=== PATIENT | female | born 1965 | race Caucasian/White ===

== ENCOUNTER 2021-02-04 07:45 | Outpatient (CLI) | payer BC ==
[2021-02-04] MEDS ORDERED: Regadenoson 0.4 MG/5 ML SYRINGE ONE (12:39)
== END 2021-02-04 07:46 | disposition home or self-care (01) ==
LOC: NM 07:45
PROVIDERS: ATTEND Physician Assistant
DX: I48.0 Paroxysmal atrial fibrillation (principal)
CPT/HCPCS: 78452; 93017; A9500; J2785

== ENCOUNTER 2021-03-30 09:06 | Outpatient (CLI) | payer BC ==
[2021-03-30 11:00] LABS: #Basophils 0.1 10x3/uL (0.0-0.2); #Eosinphils 0.3 10x3/uL (0.0-0.5); #Monocytes 0.7 10x3/uL (0.0-1.1); #Neutrophils 5.4 10x3/uL (1.5-8.4); %Basophils 1.2 % (0.0-2.0); %Eosinophils 2.7 % (0.0-6.0); %Monocytes 7.4 % (0.0-10.0); %Neutrophils 58.4 % (40.0-75.0); Hemoglobin 13.5 g/dL (12.0-15.5); Mean Corpuscular HGB CONC 32.3 g/dL (32.0-36.0); Mean Corpuscular Hemoglobin 27.7 pg (27.0-33.0); Mean Corpuscular Volume 85.7 fl (81.6-98.3); Mean Platelet Volume 11.5 fl (7.4-10.4); Platelet Count 397 10x3/uL (150-450); RBC Distribution Width 14.5 % (11.5-14.5); Red Blood Cell (RBC) Count 4.88 10x6/uL (3.90-5.03); White Blood Cell (WBC) Count 9.2 10x3/uL (3.5-10.5)
[2021-03-30 11:26] LABS: PTT 27.8 sec (22.0-33.0); Prothrombin Time 10.9 sec (9.5-12.1)
[2021-03-30 11:41] LABS: Anion Gap 13 mmol/L (10-20); BUN (Urea Nitrogen) 14 mg/dL (9.8-20.1); Calc. Creatinine Clearance 0 mL/min (70-130); Calcium 9.8 mg/dL (7.8-10.44); Carbon Dioxide 24 mmol/L (22-29); Chloride 106 mmol/L (98-107); Glucose 101 mg/dL (70-105); Potassium 4.4 mmol/L (3.5-5.1); Sodium 139 mmol/L (136-145)
[2021-03-30 17:50] LABS: SARS-CoV-2 PCR by NAA Not Detected (NotDetected)
== END 2021-03-30 09:07 | disposition home or self-care (01) ==
LOC: LABBT 09:06
PROVIDERS: ATTEND Internal Medicine Cardiovascular Disease
DX: Z01.812 Encounter for preprocedural laboratory examination (principal); I48.0 Paroxysmal atrial fibrillation; Z20.822 Contact with and (suspected) exposure to COVID-19
CPT/HCPCS: 80048; 85025; 85610; 85730; 87635; U0003; U0005

== ENCOUNTER 2021-04-02 05:54 | Day surgery (SDC) | payer BC ==
[2021-04-01 10:01] VITALS: BMI 31.8
[2021-04-02] MEDS ORDERED: Phenylephrine 10 MG/ML VIAL ONE ×2 (06:14→06:57)
[2021-04-02] MEDS ORDERED: Midazolam HCl 2 mg/2 ml Vial ONE (06:15)
[2021-04-02] MEDS ORDERED: Fentanyl 100 MCG/2 ML VIAL ONE ×3 (06:15→11:02)
[2021-04-02] MEDS ORDERED: Heparin 10,000 UNITS/ 10 ML VIAL ONE ×4 (06:39→09:18)
[2021-04-02] MEDS ORDERED: Heparin 25,000 units/D5W 500 ML ONE (06:39)
[2021-04-02] MEDS ORDERED: Rocuronium Bromide 10 MG/ML (10ML VIAL) ONE (07:25)
[2021-04-02] MEDS ORDERED: PROPOFOL 200 MG/20 ML VIAL ONE (07:25)
[2021-04-02] MEDS ORDERED: Lidocaine 1% PF 5 ML VIAL ONE (07:25)
[2021-04-02] MEDS ORDERED: Glycopyrrolate 0.2 MG/ML 5 ML SYRINGE ONE (07:25)
[2021-04-02] MEDS ORDERED: Dexamethasone 20 MG/5 ML VIAL ONE (07:25)
[2021-04-02] MEDS ORDERED: Ondansetron PF 4 MG/2 ML Vial ONE (07:25)
[2021-04-02] MEDS ORDERED: Protamine Sulfate 50 MG/5 ML VIAL ONE (09:54)
== END 2021-04-02 15:00 | disposition home or self-care (01) ==
LOC: SDC 05:54
PROVIDERS: ATTEND Internal Medicine Cardiovascular Disease
PROC: B246ZZ4 Ultrasonography of Right and Left Heart, Transesophageal (ICD-10-PCS; principal; 2021-04-02)
PROC: 02583ZZ Destruction of Conduction Mechanism, Percutaneous Approach (ICD-10-PCS; principal; 2021-04-02)
PROC: 02K83ZZ Map Conduction Mechanism, Percutaneous Approach (ICD-10-PCS; principal; 2021-04-02)
DX: I48.0 Paroxysmal atrial fibrillation (principal); J30.2 Other seasonal allergic rhinitis; Z79.01 Long term (current) use of anticoagulants; Z79.899 Other long term (current) drug therapy; Z91.048 Other nonmedicinal substance allergy status
CPT/HCPCS: 76942; 85347; 93005; 93312; 93613; 93656; 93662; C1730; C1732; C1759; C1894; C2630; J1100; J1644; J2250; J2370; J2405; J2704; J2720; J3010

== ENCOUNTER 2022-11-28 19:30 | Outpatient (CLI) | payer BC | END 2022-11-28 19:31 | disposition home or self-care (01) | LOC: SLEEPLAB 19:30 | PROVIDERS: ATTEND Family Medicine Sports Medicine | DX: G47.33 Obstructive sleep apnea (adult) (pediatric) (principal); R53.83 Other fatigue; F41.9 Anxiety disorder, unspecified; I49.9 Cardiac arrhythmia, unspecified; R06.83 Snoring; G47.10 Hypersomnia, unspecified; K21.9 Gastro-esophageal reflux disease without esophagitis; I48.91 Unspecified atrial fibrillation; G47.00 Insomnia, unspecified | CPT/HCPCS: 95810 ==